=== PATIENT | male | born 1970 | race Caucasian/White ===

== ENCOUNTER 2019-03-31 13:34 | Emergency (ER) | payer BC ==
[2019-03-31 15:21] LABS: ABSOLUTE EOSINOPHILS # (AUTO) 0.1 10^3/uL (0.0-0.6); ABSOLUTE LYMPHOCYTES (AUTO) 1.9 10^3/uL (0.5-4.7); ABSOLUTE MONOCYTES (AUTO) 0.6 10^3/uL (0.1-1.4); BASOPHILS % (AUTO) 0.4 % (0-2); EOSINOPHILS % (AUTO) 0.9 % (0-6); HEMATOCRIT 45.3 % (37.9-51.0); HEMOGLOBIN 15.4 g/dL (13.5-17.0); LYMPHOCYTES % (AUTO) 17.5 % (13-45); MEAN CORPUSCULAR HEMOGLOBIN 32.1 pg (27.0-33.4); MEAN CORPUSCULAR HGB CONC 33.9 g/dL (32.0-36.0); MEAN CORPUSCULAR VOLUME 95 fl (80-97); MONOCYTES % (AUTO) 6.1 % (3-13); PLATELET COUNT 265 10^3/uL (150-450); RED BLOOD COUNT 4.79 10^6/uL (4.35-5.55); RED CELL DISTRIBUTION WIDTH 12.8 % (11.5-14.0); SEGMENTED NEUTROPHILS % (AUTO) 75.1 % (42-78); TOTAL CELLS COUNTED % (AUTO) 100 %; WHITE BLOOD COUNT 10.6 10^3/uL (4.0-10.5)
[2019-03-31] MEDS ORDERED: NORMAL SALINE 1000 ML 1,000 ML IV ONE ×2 (15:26→16:27)
[2019-03-31 15:33] LABS: ALANINE AMINOTRANSFERASE 28 U/L (21-72); ALKALINE PHOSPHATASE 69 U/L (38-126); ANION GAP 10 (5-19); ASPARTATE AMINO TRANSFERASE 29 U/L (17-59); BILIRUBIN,DIRECT 0.2 mg/dL (0.0-0.4); BILIRUBIN,TOTAL 0.4 mg/dL (0.2-1.3); BLOOD UREA NITROGEN 18 mg/dL (7-20); CALCIUM 9.4 mg/dL (8.4-10.2); CARBON DIOXIDE 23 mmol/L (22-30); CHLORIDE 108 mmol/L (98-107); GLUCOSE 92 mg/dL (75-110); SODIUM 140.8 mmol/L (137-145); TOTAL PROTEIN 6.6 g/dL (6.3-8.2)
[2019-03-31 15:43] LABS: ALCOHOL < 10 mg/dL (NONE DETECTED)
[2019-03-31 15:55] LABS: CREATINE KINASE 66 U/L (55-170)
[2019-03-31 16:08] LABS: APPEARANCE,URINE CLOUDY; BILIRUBIN,URINE NEGATIVE (NEGATIVE); COLOR,URINE AMBER; GLUCOSE, URINE NEGATIVE (NEGATIVE); KETONES,URINE NEGATIVE (NEGATIVE); LEUKOCYTE ESTERASE,URINE NEGATIVE (NEGATIVE); NITRITE,URINE NEGATIVE (NEGATIVE); PROTEIN,URINE 30 mg/dL (NEGATIVE); URINE SPECIFIC GRAVITY 1.016; UROBILINOGEN,URINE NEGATIVE mg/dL (<2.0)
[2019-03-31 16:19] LABS: URINE AMPHETAMINES SCREEN NEGATIVE; URINE BARBITURATES SCREEN NEGATIVE; URINE BENZODIAZEPINES SCREEN NEGATIVE; URINE COCAINE SCREEN NEGATIVE; URINE MARIJUANA (THC) SCREEN NEGATIVE; URINE METHADONE SCREEN NEGATIVE; URINE PHENCYCLIDINE SCREEN NEGATIVE
--- NOTE | 2019-03-31 16:47 | ER Document Report ---
ED General - General Chief Complaint: Altered Mental Status Stated Complaint: ALTERED MENTAL STATUS Time Seen by Provider: 03/31/19 15:26 Information source: Patient Notes: HPI: 49-year-old male who was out mowing the lawn today in the heat and stated he started to feel "a little woozy". He denies any and all chest pain, neck pain, headache, or focal weakness or numbness. He states he continued to mow the lawn and then woke up after a possible syncopal episode. No history of seizures. No incontinence noted. The daughter found him laying in the yard for short period of time. Family states that when they awoke him initially he was a little confused. They used cold cloth on his face within the next 5 minutes he returned to normal baseline mental status. After the incident the patient continued to have no pain. Patient has never had any palpitations. No history of syncope. Patient did drink alcohol last night but not in excess. ROS: See HPI All other review of systems reviewed and otherwise negative Reviewed vital signs and nursing note as charted by RN. PHYSICAL EXAM: CONSTITUTIONAL: Alert and oriented and responds appropriately to questions. Well-appearing; well-nourished HEAD: Normocephalic; atraumatic EYES: PERRL; full extraocular range of motion; no nystagmus noted ENT: Normal nose; no rhinorrhea; moist mucous membranes; pharynx without lesions noted NECK: Supple without meningismus; non-tender; no carotid bruit; no cervical lymphadenopathy, no masses CARD: Regular rate and rhythm; no murmurs; symmetric distal pulses RESP: Normal chest excursion without splinting or tachypnea; breath sounds clear and equal bilaterally ABD/GI: Normal bowel sounds; non-distended; soft, non-tender; no palpable organomegaly or masses BACK: The back appears normal and is non-tender to palpation EXT: Normal ROM in all joints; non-tender to palpation; no edema SKIN: No acute lesions noted NEURO: CN 2-12 intact; 5/5 bilateral upper and lower extremity strength with sensation intact to light touch PSYCH: The patient's mood and manner are appropriate. Grooming and personal hygiene are appropriate. TRAVEL OUTSIDE OF THE [place] IN LAST 30 DAYS: No Past Medical History - Social History Smoking Status: Unknown if Ever Smoked Family History: Reviewed & Not Pertinent Patient has suicidal ideation: No Patient has homicidal ideation: No - Past Medical History Cardiac Medical History: Reports: Hx Hypercholesterolemia Renal/ Medical History: Denies: Hx Peritoneal Dialysis Physical Exam - Vital signs Vitals: Temp Pulse Resp BP Pulse Ox 97.9 F 96 20 114/83 99 03/31/19 13:36 03/31/19 13:36 03/31/19 13:36 03/31/19 13:36 03/31/19 13:36 Course - Re-evaluation Re-evalutation: Given the history and physical examination, with the incident of feeling a little lightheaded and woozy before the event, with no chest pain or palpitations, I do believe this most likely is a syncopal-like episode. Patient currently has no pain and has no focal neurological deficits. No history of seizures and the patient has had no incontinence. No obvious postictal period appreciated. 03/31/19 17:41 Labs as recorded. Still no focal neurological deficits. 03/31/19 18:56 Labs as recorded. Imaging as recorded. Patient still denies any and all symptomatology. Given the above history and physical examination, with the labs and imaging as recorded, with no pain or still no focal neurological deficits, patient will be discharged home with strict return precautions and follow-up with the primary care physician. Patient and family are comfortable with this plan. I will give seizure-like instructions. - Vital Signs Vital signs: Temp Pulse Resp BP Pulse Ox 97.9 F 69 18 123/83 100 03/31/19 13:36 03/31/19 18:50 03/31/19 18:50 03/31/19 17:01 03/31/19 18:50 - Laboratory Result Diagrams: 03/31/19 14:03 03/31/19 14:03 Laboratory results interpreted by me: 03/31/19 03/31/19 03/31/19 14:03 14:03 14:05 WBC 10.6 H Chloride 108 H Urine Protein 30 H Urine Ascorbic Acid 40 H Discharge - Discharge Clinical Impression: Syncope Qualifiers: Syncope type: unspecified Qualified Code(s): R55 - Syncope and collapse Condition: Good Disposition: HOME, SELF-CARE Additional Instructions: Come back immediately with any repeat episodes, any lightheadedness, headache, chest pain, abdominal pain, weakness or numbness, fevers, or any other acute pro blems. Please make sure that you stay hydrated and out of the heat. Please do not drive a car, operate heavy machinery, take a bath alone, swim, or engage in any other activities that may cause serious harm or injury if you should have a repeat episode until you have been cleared by your primary care physician.
--- NOTE | 2019-03-31 18:41 | RADIOLOGY REPORT (SQ) ---
EXAM DESCRIPTION: CT HEAD WITHOUT COMPLETED DATE/TIME: 03/31/2019 6:23 pm REASON FOR STUDY: mp; ams; syncope? COMPARISON: None. TECHNIQUE: Axial images acquired through the brain without intravenous contrast. Images reviewed wit h bone, brain and subdural windows. Images stored on PACS. All CT scanners at this facility use dose modulation, iterative reconstruction, and/or weight based d osing when appropriate to reduce radiation dose to as low as reasonably achievable (ALARA). [facility]: Dose Right [facility]: CareDose [facility]: Dose Right [facility]: Teradose 4D [facility]: Smart Envision Blue Green RADIATION DOSE: CT Rad equipment meets quality standard of care and radiation dose reduction techniq ues were employed. CTDIvol: 48.6 mGy. DLP: 905 mGy-cm.. LIMITATIONS: None. FINDINGS: VENTRICLES: Normal size and contour. CEREBRUM: No masses. No hemorrhage. No midline shift. Age appropriate white matter. No evidence for a cute infarction. CEREBELLUM: No masses. No hemorrhage. No alteration of density. No evidence for acute infarction. EXTRA-AXIAL SPACES: No fluid collections. ORBITS AND GLOBE: No intra- or extraconal masses. Normal contour of globe without masses. CALVARIUM: No fracture. PARANASAL SINUSES: No fluid or mucosal thickening. SOFT TISSUES: No mass or hematoma. OTHER: No other significant finding. IMPRESSION: NO ACUTE INTRACRANIAL FINDINGS. EVIDENCE OF ACUTE STROKE: NO. TECHNICAL DOCUMENTATION: JOB ID: [id number] [place]-72 Quality ID # [id number]: Final reports with documentation of one or more dose reduction techniques (e.g., Au tomated exposure control, adjustment of the mA and/or kV according to patient size, use of iterative reconstruction technique) 2010 [employer]- All Rights Reserved Reading location - IP/workstation name: [email or web address]
[2019-03-31 19:04] VITALS: BP 118/65
--- NOTE | 2019-03-31 20:05 | EKG REPORT ---
SEVERITY:- NORMAL ECG - SINUS RHYTHM : Confirmed by: Kathy Elias MD 31-Mar-2019 20:04:22
== END 2019-03-31 19:13 | disposition home or self-care (01) ==
LOC: ER 13:34
DX: R55 Syncope and collapse (principal)
CPT/HCPCS: 93005; 99284; 96360; 96361; 36415; 82553; 82962; 80307 ×2; 82550; 83735; 85025; 80053; 81001; 70450; 93010; J7030